=== PATIENT | male | born 1950 | race Caucasian/White ===

== ENCOUNTER 2019-07-12 07:21 | Day surgery (SDC) | payer OTHER ==
[~2019-07-12] VITALS: Ht 182.9 cm; Wt 105.2 kg
[2019-07-12] VITALS (11 sets, daily range): BP systolic 119–144; BP diastolic 71–92; PULSE 84–92; RESP 16–22; Ht 182.9 cm; Wt 105.2 kg
[~2019-07-12 07:21] MED LIST: BACL20TA PO; CARV25TA79 PO; HYDR-3612 PO; HYDR-3672 PO; HYDR-3980 PO; HYDR12.53 PO; HYDR12.58 PO; OMEP20CA16 PO; OMEP40CA6 PO; RANI300T PO; SIMV20TA PO; SOD CHLORIDE 0.9% 1,000 ML IV ONE; TEMA-106 PO; TEMA15CA PO; ZOLP10TA PO; ZOLP10TA5 PO
[2019-07-12] MEDS ORDERED: MEPERIDINE 25 MG INJ IV PRN (08:00)
[2019-07-12] MEDS ORDERED: hydrALAzine 20 MG INJ IV PRN (08:00)
[2019-07-12] MEDS ORDERED: OXYCODONE/ACETAMINOPHEN (5/325) TAB PO PRN ×3 (08:00→10:30)
[2019-07-12] MEDS ORDERED: FENTAnyl 50 MCG/ML VIAL IV PRN ×3 (08:00)
[2019-07-12] MEDS ORDERED: ONDANSETRON 4 MG INJ IV PRN ×2 (08:00→10:30)
[2019-07-12] MEDS ORDERED: LABETALOL HCL 20MG INJ IV PRN (08:00)
[2019-07-12] MEDS ORDERED: LIDOCAINE 1%/EPI 30 ML INJ ONE (08:06)
[2019-07-12] MEDS ORDERED: GENTAMICIN 80 MG INJ ONE (08:06)
[2019-07-12] MEDS ORDERED: BUPIVACAINE 0.25% (MPF) 30 ML INJ ONE (08:06)
[2019-07-12] MEDS ORDERED: MUPIROCIN 2% 15 GM CR ONE (08:06)
[2019-07-12] MEDS ORDERED: POLYMYXIN/BACITRACIN 1L IRRIG ONE (08:06)
[2019-07-12] MEDS ORDERED: CEFAZOLIN 1 GM INJ ONE (08:13)
[2019-07-12] MEDS ORDERED: PROPOFOL 20 ML ONE (08:13)
[2019-07-12] MEDS ORDERED: PHENYLephrine (100 MCG/ML) 10ML SYG ONE (08:13)
[2019-07-12] MEDS ORDERED: LIDOCAINE 2% (SDV) 5 ML INJ ONE (08:13)
[2019-07-12] MEDS ORDERED: FENTAnyl 50 MCG/ML VIAL ONE (08:14)
[2019-07-12] MEDS ORDERED: MIDAZOLAM 1 MG/ML 2 ML INJ ONE (08:14)
[2019-07-12] MEDS ORDERED: BUPIVACAINE 0.25%/EPI (SDV) 10 ML INJ ONE (08:15)
[2019-07-12] MEDS ORDERED: DEXAMETHASONE 4 MG/ML 5 ML INJ ONE (08:25)
[2019-07-12] MEDS ORDERED: FAMOTIDINE 20 MG INJ ONE (08:25)
[2019-07-12] MEDS ORDERED: METOCLOPRAMIDE 10 MG INJ ONE (08:25)
[2019-07-12] MEDS ORDERED: ONDANSETRON 4 MG INJ ONE (08:25)
[2019-07-12] MEDS ORDERED: EPHEDrine 25 MG/5 ML SYG ONE (08:39)
[2019-07-12] MEDS ORDERED: LACTATED RINGER'S 1,000 ML IV SCH (10:01)
[2019-07-12] MEDS ORDERED: HYDROCODONE/APAP (5/325) TAB PO PRN (10:30)
[2019-07-12] MEDS ORDERED: ACETAMINOPHEN 325 MG TAB PO PRN (10:30)
== END 2019-07-12 11:11 | disposition home or self-care (01) ==
LOC: SUR 07:21 → SDS 07:21 → SUR 11:11
PROVIDERS: ATTEND Surgery Plastic and Reconstructive Surgery
DX: L57.8 Other skin changes due to chronic exposure to nonionizing radiation (principal); L90.5 Scar conditions and fibrosis of skin; Z85.828 Personal history of other malignant neoplasm of skin; I10 Essential (primary) hypertension
CPT/HCPCS: 11446; 15760; 88305; 88331; J0690; J1100; J1580; J2175; J2250; J2405; J2765; J3010; J2370